=== PATIENT | female | born 1960 | race Caucasian/White ===

== ENCOUNTER 2016-10-29 09:18 | Day surgery (SDC) | payer OTHER ==
[~2016-10-29 09:18] MED LIST: FENTANYL 250 MCG/5 ML AMP IV PRN; LACTATED RINGERS 1,000 ML IV SCH; MIDAZOLAM HCL 5 MG/5 ML VIAL IV PRN
[2016-10-29] MEDS ORDERED: IV START KIT ONE (10:30)
[2016-10-29] MEDS ORDERED: LACTATED RINGERS 1,000 ML ONE (10:30)
[2016-10-29] MEDS ORDERED: FENTANYL 250 MCG/5 ML AMP ONE (10:50)
[2016-10-29] MEDS ORDERED: MIDAZOLAM HCL 5 MG/5 ML VIAL ONE (10:50)
--- NOTE | 2016-11-04 10:31 | SURGPATH ---
[facility] [address] [place] [id number] Patient Name: LILIAN RIDLEY MR#: [id number] : 1960 Gender: F Specimen #: [id number] Collected: 10/29/2016 Received: 11/03/2016 Reported: 11/04/2016 Submitting Phys: ANDRADE BROWNE Copy To Phys: ILIR MEYER [facility] Clinical History / Pre-Operative Diagnosis: History of colon polyps Specimen Source / Surgical Procedure Performed: #1 mid transverse colon polyp, #2 hepatic flexure polyp Interpretation: 1, 2. MID TRANSVERSE COLON POLYP, HEPATIC FLEXURE POLYP, BIOPSIES: - TUBULAR ADENOMAS Electronically Signed Out Wilmar Brooks M.D. Gross Description: 1. The specimen is received in formalin labeled with the patient's name and "mid transverse colon polyp". The specimen consists of two fragments of aburto soft tissue each is 0.2-0.7 cm in greatest dimension. Submitted in toto in one cassette 2. The specimen is received in formalin labeled with the patient's name and "hepatic flexure polyp". The specimen consists of a single fragment of aburto soft tissue, 0.3 cm in greatest dimension. Submitted in toto in one cassette KWAN Yu Microscopic Description: 1, 2. Levels reveal colonic mucosa surfaced by tubular glands with focal adenomatous features. High grade dysplasia and malignancy are not present. 1: 83394 2: 69802 D12.3
== END 2016-10-29 12:10 | disposition home or self-care (01) ==
LOC: SDC 09:18
PROVIDERS: ATTEND Internal Medicine Gastroenterology
PROC: 0DBL8ZX Excision of Transverse Colon, Via Natural or Artificial Opening Endoscopic, Diagnostic (ICD-10-PCS; principal; 2016-10-29)
DX: Z12.11 Encounter for screening for malignant neoplasm of colon (principal); D12.3 Benign neoplasm of transverse colon; K57.30 Diverticulosis of large intestine without perforation or abscess without bleeding; Z86.010 Personal history of colon polyps; E03.9 Hypothyroidism, unspecified; M79.1 Myalgia; E55.9 Vitamin D deficiency, unspecified
CPT/HCPCS: 45380; J3010; J2250; J7120